=== PATIENT | male | born 1990 | race Native Hawaiian/Other Pacific Islander ===

== ENCOUNTER 2018-03-18 11:24 | Emergency (ER) | payer OTHER ==
[~2018-03-18] VITALS: Ht 190.5 cm; Wt 120.2 kg
[2018-03-18 12:53] LABS: PLATELET COUNT 243 K/uL (142-355)
[2018-03-18 14:23] VITALS: BP 140/88; TEMP 98
== END 2018-03-18 14:23 | disposition home or self-care (01) ==
LOC: ED 11:24
PROVIDERS: Family Medicine
DX: R19.5 Other fecal abnormalities (principal); T45.4X5A Adverse effect of iron and its compounds, initial encounter
CPT/HCPCS: 80053; 81000; 82272; 85027; 99283

== ENCOUNTER 2020-11-01 17:03 | Emergency (ER) | payer OTHER ==
[~2020-11-01] VITALS: Ht 190.5 cm; Wt 104.8 kg
[2020-11-01 17:20] VITALS: BP 180/92; TEMP 97
== END 2020-11-01 18:07 | disposition home or self-care (01) ==
LOC: ED 17:03
DX: S92.414A Nondisplaced fracture of proximal phalanx of right great toe, initial encounter for closed fracture (principal); W22.8XXA Striking against or struck by other objects, initial encounter; Y92.89 Other specified places as the place of occurrence of the external cause
CPT/HCPCS: 96372; 99283; J1885

== ENCOUNTER 2022-01-01 12:57 | Emergency (ER) | payer OTHER ==
[~2022-01-01] VITALS: Ht 190.5 cm; Wt 108.9 kg
[2022-01-01 13:03] VITALS: TEMP 99.1
[2022-01-01 14:02] LABS: PLATELET COUNT 191 K/uL (142-355)
[2022-01-01 16:00] VITALS: BP 139/91
== END 2022-01-01 16:01 | disposition home or self-care (01) ==
LOC: ED 12:57
PROVIDERS: Emergency Medicine Emergency Medical Services
DX: R10.33 Periumbilical pain (principal)
CPT/HCPCS: 80053; 80307; 81002; 85027; 96360; 96374; 96375; 99284; J1885; J2405; Q9963